=== PATIENT | female | born 1995 | race Hispanic/Latino ===

== ENCOUNTER 2018-10-22 16:58 | Emergency (ER) | payer SELFPAY ==
[~2018-10-22] VITALS: Ht 165.1 cm; Wt 60.0 kg
[2018-10-22 17:22] LABS: HEMATOCRIT 40.6 % (37.0-47.0); HEMOGLOBIN 13.5 g/dl (12.0-16.0); IMMATURE GRANULOCYTES 0.6 % (0.0-5.0); MEAN CELL VOLUME 89.8 fL CALC (80.0-100.0); MEAN CORPUSCULAR HGB 29.9 pG CALC (26.0-32.0); MEAN CORPUSCULAR HGB CONC 33.3 g/L CALC (32.0-36.0); NEUT# 11.93 thou/uL (2.00-7.15); RED BLOOD COUNT 4.52 mill/uL (4.20-5.60)
[2018-10-22 17:38] LABS: ALBUMIN 4.6 g/dL (3.2-5.0); ALKALINE PHOSPHATASE 80 u/l (38-126); ANION GAP 16 (6-22 (CALC)); BILIRUBIN, TOTAL 0.3 mg/dL (0.0-1.4); BUN 19 mg/dL (7-17); BUN/CREATININE RATIO 24 (12-20 (CALC)); CARBON DIOXIDE 21 mmol/l (22-30); CHLORIDE 106 mmol/l (95-108); CREATININE 0.8 mg/dL (0.5-1.0); GFR > 60 ML/MIN (>=60 (CALC)); GFR FOR AFR.AMER. > 60 ML/MIN (>=60 (CALC)); POTASSIUM 3.9 mmol/l (3.5-5.1); SGOT/AST 32 u/l (14-36); SODIUM 138 mmol/l (137-146); TOTAL PROTEIN 8.1 g/dL (6.3-8.2)
[2018-10-22] MEDS ORDERED: XANAX0.5 MG PO (18:26)
[2018-10-22 18:28] VITALS: BP 115/59
== END 2018-10-22 18:36 | disposition home or self-care (01) | DRG 880 ==
LOC: ED 16:58
PROVIDERS: Emergency Medicine
DX: F41.1 Generalized anxiety disorder (principal); F43.0 Acute stress reaction; R07.9 Chest pain, unspecified
CPT/HCPCS: J2060

== ENCOUNTER 2018-10-24 23:45 | Emergency (ER) | payer SELFPAY ==
[~2018-10-24] VITALS: Ht 165.1 cm; Wt 61.3 kg
[~2018-10-24 23:45] MED LIST: XANAX0.5 MG PO
[2018-10-25 01:24] VITALS: BP 110/71
== END 2018-10-25 01:24 | disposition home or self-care (01) | DRG 880 ==
LOC: ED 23:45
DX: F41.0 Panic disorder [episodic paroxysmal anxiety] (principal)
CPT/HCPCS: J2060

== ENCOUNTER 2022-04-06 09:31 | Emergency (ER) | payer SELFPAY ==
[2022-04-06] VITALS (12 sets, daily range): BP systolic 101–118; BP diastolic 59–74
[~2022-04-06] VITALS: Ht 165.1 cm; Wt 50.0 kg
[2022-04-06 10:37] LABS: ALBUMIN 4.4 g/dL (3.2-5.0); ALKALINE PHOSPHATASE 46 u/l (38-126); ANION GAP 12 (6-22 (CALC)); BILIRUBIN, TOTAL 0.2 mg/dL (0.0-1.4); BUN 8 mg/dL (7-17); BUN/CREATININE RATIO 10 (12-20 (CALC)); CARBON DIOXIDE 24 mmol/l (22-30); CHLORIDE 107 mmol/l (95-108); CREATININE 0.8 mg/dL (0.5-1.0); GFR FOR AFR.AMER. > 60 ML/MIN (>=60 (CALC)); GFR OTHER RACES > 60 ML/MIN (>=60 (CALC)); POTASSIUM 3.7 mmol/l (3.5-5.1); SGOT/AST 27 u/l (14-36); SODIUM 140 mmol/l (137-146)
[2022-04-06 10:39] LABS: HEMATOCRIT 42.9 % (37.0-47.0); HEMOGLOBIN 14.2 g/dl (12.0-16.0); IMMATURE GRANULOCYTES 0.1 % (0.0-5.0); MEAN CELL VOLUME 90.9 fL CALC (80.0-100.0); MEAN CORPUSCULAR HGB 30.1 pG CALC (26.0-32.0); MEAN CORPUSCULAR HGB CONC 33.1 g/dL CAL (32.0-36.0); NEUT# 4.12 thou/uL (2.00-7.15); RED BLOOD COUNT 4.72 mill/uL (4.20-5.60); RED CELL DISTRI WIDTH 12.4 % (11.5-15.5)
[2022-04-06 10:42] LABS: PROTHROMBIN TIME 10.3 SECONDS (9.0-12.5)
[2022-04-06 11:07] LABS: URINE BILIRUBIN - DIPSTICK NEGATIVE (NEGATIVE); URINE BLOOD DIPSTICK LARGE (NEGATIVE); URINE COLOR YELLOW; URINE GLUCOSE - DIPSTICK NEGATIVE (NEGATIVE); URINE KETONE NEGATIVE (NEGATIVE); URINE LEUK ESTERASE NEGATIVE (NEGATIVE); URINE PROTEIN - DIPSTICK NEGATIVE (NEG-TRACE); URINE SPECIFIC GRAVITY 1.015; URINE UROBILINOGEN - DIPSTICK 0.2 E.U./dL (0.2)
[2022-04-06 11:09] LABS: URINE NITRITE - DIPSTICK NEGATIVE (Negative)
[2022-04-06 11:10] LABS: URINE RBC 25-50 RBC/hpf (0-5)
== END 2022-04-06 16:07 | disposition left against medical advice (07) | DRG 65 ==
LOC: ED 09:31
PROVIDERS: Family Medicine
DX: I63.9 Cerebral infarction, unspecified (principal); G81.91 Hemiplegia, unspecified affecting right dominant side; R20.2 Paresthesia of skin; R29.703 NIHSS score 3; F41.9 Anxiety disorder, unspecified; Z91.19 Patient's noncompliance with other medical treatment and regimen
CPT/HCPCS: Q9967